=== PATIENT | male | born 1990 | race Caucasian/White ===

== ENCOUNTER 2017-12-13 17:17 | Emergency (ER) | payer SELFPAY ==
[2017-12-13 18:10] VITALS: BP 115/64
--- NOTE | 2017-12-13 19:25 | UC ---
Abdominal Pain Male HPI - HPI Summary HPI Summary: 27-year-old male presents with a two-month history of intermittent epigastric pain and heartburn. States he is taking Tums several times a day in order to control symptoms. Today he states the pain was particularly bad causing him to leave work. He got himself some lunch at [email or web address], laid down for about an hour, and when he awoke the pain was quite severe and he vomited 1. He does note that the heartburn has a woken him from sleep at times. He describes the pain as a gnawing sensation that typically resolves after using Tums although says over the past couple of weeks this has not been as effective. He denies any fevers, chills, diarrhea, hematemesis, blood in his stools, melena, chest pain, shortness of breath, weakness or dizziness, dysuria, frequency, urgency, or hematuria. Does have a history of drinking alcohol to the point of intoxication a couple times a month although states he has not drank in the past 2 months because the last time he did it caused severe pain. He also reports smoking marijuana about every 4-5 months. He smokes about a pack a day. And does drink one or 2 energy drinks a day although he says he has cut out all sodas. - History of Current Complaint Chief Complaint: UCAbdominalPain Stated Complaint: STOMACH COMPLAINT Time Seen by Provider: 12/13/17 18:56 Hx Obtained From: Patient Onset/Duration: Sudden Onset Timing: Intermittent Episodes Lasting: - Several minutes Severity Initially: Mild Severity Currently: Moderate Pain Intensity: 7 Radiates: No Character: Burning, Other - gnawing Aggravating Factor(s): Food Alleviating Factor(s): Meds - Tums Associated Signs And Symptoms: Positive: Vomiting - Times one episode - Allergies/Home Medications Allergies/Adverse Reactions: Allergies Allergy/AdvReac Type Severity Reaction Status Date / Time No Known Allergies Allergy Verified 12/13/17 18:10 PMH/Surg Hx/FS Hx/Imm Hx Previously Healthy: Yes - Surgical History Surgical History: Yes Surgery Procedure, Year, and Place: ear tubes. adenoidectomy - Family History Known Family History: Positive: Cardiac Disease, Hypertension - Social History Occupation: Employed Full-time Lives: With Family Alcohol Use: Occasionally Substance Use Type: Marijuana Substance Use Comment - Amount & Last Used: occasional Smoking Status (MU): Heavy Every Day Tobacco Smoker Type: Cigarettes Amount Used/How Often: 5-10 cigarettes daily Household Exposure Type: Cigarettes Review of Systems Constitutional: Negative Skin: Negative Respiratory: Negative Cardiovascular: Negative Gastrointestinal: Abdominal Pain, Vomiting Genitourinary: Negative Is Patient Immunocompromised?: No All Other Systems Reviewed And Are Negative: Yes Physical Exam Triage Information Reviewed: Yes Appearance: Well-Appearing, No Pain Distress, Well-Nourished Vital Signs: Initial Vital Signs Temp 97.9 F 12/13/17 18:06 Pulse 61 12/13/17 18:06 Resp 16 12/13/17 18:06 BP 115/64 12/13/17 18:06 Pulse Ox 99 12/13/17 18:06 Vital Signs Reviewed: Yes ENT: Positive: Normal ENT inspection Respiratory: Positive: Chest non-tender, Lungs clear, Normal breath sounds, No respiratory distress Cardiovascular: Positive: RRR, No Murmur, Pulses Normal Abdomen Description: Positive: No Organomegaly, Soft, Other: - Mild epigastric tenderness. Negative: Distended, Guarding, Pulsatile Mass Bowel Sounds: Positive: Present Skin Exam: Normal Abd Pain Male Course/Dx - Course Course Of Treatment: 27-year-old male with a 2 month history of intermittent epigastric pain and heartburn that he has been self treating with Tums several times a day. Today he had severe episode of epigastric pain followed by one episode of vomiting. On exam he did have some mild epigastric pain. He was nontoxic in appearance and remainder of exam was benign. History is suggestive of peptic ulcer disease versus gastroesophageal reflux disease although cannot also rule out the possibility of gallbladder disease and pancreatitis. Will treat with ranitidine 150 mg twice a day. Patient is to establish with a primary care provider for further evaluation and possible referral. He was given a list of primary care providers today in clinic. Repeated warning symptoms that would require immediate evaluation in the emergency room. Patient verbalized understanding and agreement with plan of care. - Differential Dx/Clinical Impression Differential Diagnosis/HQI/PQRI: Gall Bladder Disease, Pancreatitis, Peptic Ulcer Disease, Other - GERD Provider Diagnoses: Epigastric pain Discharge - Sign-Out/Discharge Documenting (check all that apply): Patient Departure - Discharge Plan Condition: Stable Disposition: HOME Prescriptions: Ranitidine TAB (NF) [Zantac TAB (NF)] 150 mg PO BID #60 tab Patient Education Materials: Peptic Ulcer (ED), Diet for Stomach Ulcers and Gastritis (ED), Gastroesophageal Reflux Disease (ED) Referrals: No Primary Care Phys,NOPCP [Primary Care Provider] - Additional Instructions: Your symptoms are suspicious for peptic ulcer disease (PUD) or gastroesophageal reflux disease (GERD). I have provided you information on both of these disorders including an appropriate diet to help alleviate symptoms. Be sure to review this information. Start taking ranitidine (Zantac) 150 mg 1 tab twice a day. It's important that you take this medication regularly in order to prevent symptoms from occurring. You may continue to use Tums as needed for any breakthrough pain or heartburn. Avoid caffeine, alcohol, peppermint, fatty foods, spicy foods, and nicotine as these can all worsens or symptoms. Avoid lying down for at least an hour after eating. He should not eat for at least 3 hours before you lie down for bed. Be sure to establish with a primary care provider from the list you were provided today as you will need follow-up care for these conditions. Seek immediate medical attention in the emergency room if you develop fever greater than 100.5 F, have worsening pain, persistent vomiting, vomit blood, having blood in your stools, dark, black, tarry stools, become weak or dizzy, or have any worsening of symptoms whatsoever. - Billing Disposition and Condition Condition: STABLE Disposition: Home
== END 2017-12-13 19:35 | disposition home or self-care (01) ==
LOC: UCCORT 17:17
DX: R10.13 Epigastric pain (principal); F17.210 Nicotine dependence, cigarettes, uncomplicated
CPT/HCPCS: 99202; G0463